=== PATIENT | female | born 1965 | race Caucasian/White ===

== ENCOUNTER 2021-02-15 06:39 | Day surgery (SDC) | payer MEDICARE, OTHER ==
[~2021-02-15] VITALS: Ht 167.6 cm; Wt 75.0 kg
[2021-02-15] MEDS ORDERED: SODIUM CHLORIDE 0.9% 1,000 ML ONE (08:00)
[2021-02-15] MEDS ORDERED: ASPI-1450 PO (08:24)
[2021-02-15] MEDS ORDERED: ATOR20TA86 PO (08:24)
[2021-02-15] MEDS ORDERED: AMIT25TA10 PO (08:24)
[2021-02-15] MEDS ORDERED: ATOR40TA28 PO (08:24)
[2021-02-15] MEDS ORDERED: FOLI-130 PO (08:24)
[2021-02-15] MEDS ORDERED: AMLO-258 PO (08:24)
[2021-02-15] MEDS ORDERED: LOSA50TA37 PO (08:24)
[2021-02-15] MEDS ORDERED: DIAZEPAM 5 MG TABLET ONE (09:32)
[2021-02-15] MEDS ORDERED: DiphenhydrAMINE HCL 50 MG CAPSULE ONE (09:33)
[2021-02-15] MEDS ORDERED: ASPIRIN 81 MG CHEWABLE TABLET ONE (09:33)
[2021-02-15] MEDS ORDERED: IOHEXOL 300 MG/ML 150 ML VIAL ONE (11:30)
[2021-02-15] MEDS ORDERED: HEPARIN SODIUM 1000 UNITS/NS 1,000 ML ONE (11:30)
[2021-02-15] MEDS ORDERED: DiphenhydrAMINE HCL 50 MG CAPSULE PO ONE (11:30)
[2021-02-15] MEDS ORDERED: SODIUM CHLORIDE 0.9% 1,000 ML IV ONE (11:30)
[2021-02-15] MEDS ORDERED: IOHEXOL 300 MG/ML 100 ML VIAL ONE (11:30)
[2021-02-15] MEDS ORDERED: LIDOCAINE/PF 1% 30 ML VIAL ONE ×3 (11:30→12:00)
[2021-02-15] MEDS ORDERED: SODIUM BICARBONATE 50 MEQ/50 ML VIAL ONE (11:30)
[2021-02-15] MEDS ORDERED: ASPIRIN 81 MG CHEWABLE TABLET PO ONE (11:30)
[2021-02-15] MEDS ORDERED: IOHEXOL 300 MG/ML 50 ML VIAL ONE (11:30)
[2021-02-15] MEDS ORDERED: DIAZEPAM 5 MG TABLET PO ONE (11:30)
[2021-02-15] MEDS ORDERED: FentaNYL CITRATE PF 100 MCG/2 ML VIAL ONE ×2 (11:49→12:10)
[2021-02-15] MEDS ORDERED: MIDAZOLAM HCL 2 MG/2 ML VIAL ONE ×2 (11:50→12:10)
== END 2021-02-15 16:40 | disposition home or self-care (01) ==
LOC: CATHLAB 06:39
PROVIDERS: ATTEND Internal Medicine Interventional Cardiology
DX: R07.9 Chest pain, unspecified (principal); I10 Essential (primary) hypertension; I69.351 Hemiplegia and hemiparesis following cerebral infarction affecting right dominant side; E78.5 Hyperlipidemia, unspecified; Z79.899 Other long term (current) drug therapy; Z90.49 Acquired absence of other specified parts of digestive tract; E78.00 Pure hypercholesterolemia, unspecified; M19.90 Unspecified osteoarthritis, unspecified site; Z79.82 Long term (current) use of aspirin; Z98.890 Other specified postprocedural states; Z87.891 Personal history of nicotine dependence; Z90.710 Acquired absence of both cervix and uterus
CPT/HCPCS: 93005; 93458; 99152; C1760; J1644; J2250; J3010; J3490 ×2; J7030; Q9967